=== PATIENT | male | born 1995 | race Caucasian/White ===

== ENCOUNTER 2019-09-03 13:03 | Outpatient (CLI) | payer OTHER ==
[2019-09-04 14:19] LABS: SARS-CoV-2 MS2 Positive; SARS-CoV-2 N Gene Negative; SARS-CoV-2 S Gene Negative; SARS-CoV-2 orf1ab Negative
== END 2019-09-03 13:04 | disposition home or self-care (01) ==
LOC: LABBT 13:03
PROVIDERS: ATTEND Orthopaedic Surgery Hand Surgery
DX: Z01.812 Encounter for preprocedural laboratory examination (principal); Z11.59 Encounter for screening for other viral diseases; S61.209A Unspecified open wound of unspecified finger without damage to nail, initial encounter
CPT/HCPCS: 87635; U0003

== ENCOUNTER 2019-09-07 14:28 | Day surgery (SDC) | payer OTHER ==
[2019-09-03 13:01] VITALS: BMI 36.1
[~2019-09-07 14:28] MED LIST: Dexamethasone 20 MG/5 ML VIAL ONE; Ketorolac Tromethamine 30 MG/ML VIAL ONE; Ondansetron PF 4 MG/2 ML Vial ONE; PROPOFOL 200 MG/20 ML VIAL ONE; diphenhydrAMINE 50 MG/ML VIAL ONE
[2019-09-07] MEDS ORDERED: Mineral Oil Sterile 10ML 10 ML UDCUP ONE (17:08)
[2019-09-07] MEDS ORDERED: Thrombin 5000 UNITS/5 ML VIAL ONE (17:08)
[2019-09-07] MEDS ORDERED: Bacitracin Zinc Ointment 30 gm TUBE ONE (17:08)
[2019-09-07] MEDS ORDERED: Bupivacaine 0.25% HCL 30 ML VIAL ONE (17:08)
[2019-09-07] MEDS ORDERED: Fentanyl 100 MCG/2 ML VIAL ONE ×2 (17:12→19:34)
[2019-09-07] MEDS ORDERED: Midazolam HCl 2 mg/2 ml Vial ONE (17:12)
[2019-09-07] MEDS ORDERED: PROPOFOL 20 ML ONE (17:52)
[2019-09-07] MEDS ORDERED: Propofol 1,000 MG/100 ML VIAL IV ONE (18:03)
[2019-09-07] MEDS ORDERED: Ketorolac Tromethamine 30 MG/ML VIAL ONE (19:18)
[2019-09-07] MEDS ORDERED: HYDROcodone/Acetaminophen 5/325 mg Tablet ONE (20:14)
--- NOTE | 2019-09-08 01:07 | OP ---
DATE OF PROCEDURE: 09/07/2019 PREOPERATIVE DIAGNOSES: 1. Right middle finger open wound, full-thickness skin loss. 2. Right ring finger partial thickness skin loss. POSTOPERATIVE DIAGNOSES: 1. Right middle finger open wound, full-thickness skin loss. 2. Right ring finger partial thickness skin loss. 3. No infection. PROCEDURES PERFORMED: 1. Dressing change, right middle finger and right ring finger wound. 2. Debridement, wound, middle finger. 3. Full-thickness skin loss, 2.5 x 1.5 cm, right middle finger. TOURNIQUET TIME: None. ESTIMATED BLOOD LOSS: Less than or equal to 10 mL. GRAFT SOURCE: Yes, antecubital fossa, where graft was harvested. DESCRIPTION OF PROCEDURE: After successful general LMA technique, the limb was prepped and draped. Immediately had 10 mL of 0.5% Marcaine given at the metacarpophalangeal joint block level at the right middle finger base of the proximal phalanx, and then had 10 mL given to the proximal area, where we had suspected to take the full-thickness skin graft. We then debrided the wound using irrigation with 500 mL normal saline, [place] blade, tenotomy scissors, A[place]on pickup, and a curette. We had no exposed bone and there was a 2 mm skin area distal to the nail and the nail bed was intact. We finished our excisional technique debridement down to the level as listed above, placed a moist dressing over here after measuring with Esmarch the size of the ellipse needed. We then outlined this ellipse and added 2 mm either side to allow for enough skin for coverage. We harvested a full-thickness graft, thinned it, and then placed it with the four-corner technique using 4-0 nylon on the hand/middle finger wound. We then did a running 5-0 chromic suture, I had stretched the graft in excellent fashion, put bacitracin on top of the graft at the finger, covered with Adaptic, covered with a bolster, which we tied using the 4-quadrant suture technique. We then closed the donor site with a running 4-0 Monocryl followed by 4-0 nylon in an interrupted mattress pattern for epidermal closure. Bulky dressing applied in both sites and we placed bacitracin and Band-Aid over the ring finger wound. He left the operating room without evidence of anesthetic or operative complication. Job ID: [id number]
== END 2019-09-07 21:01 | disposition home or self-care (01) ==
LOC: SDC 14:28
PROVIDERS: ATTEND Orthopaedic Surgery Hand Surgery
PROC: 0HRFX73 Replacement of Right Hand Skin with Autologous Tissue Substitute, Full Thickness, External Approach (ICD-10-PCS; principal; 2019-09-07)
DX: S61.202A Unspecified open wound of right middle finger without damage to nail, initial encounter (principal)
CPT/HCPCS: J0690; J1100; J1200; J1885; J2250; J2405; J2704; J3010; J3490; S0020

== ENCOUNTER 2022-06-20 07:07 | Day surgery (SDC) | payer BC ==
[2022-06-19 12:10] VITALS: BMI 36.1
[2022-06-20] MEDS ORDERED: Oxymetazoline HCl 0.05% (30 ML BOT) ONE ×2 (08:23→09:33)
[2022-06-20] MEDS ORDERED: Fentanyl 250 MCG/5 ML VIAL ONE (09:29)
[2022-06-20] MEDS ORDERED: Midazolam HCl 2 mg/2 ml Vial ONE (09:29)
[2022-06-20] MEDS ORDERED: Bacitracin Zinc Ointment 30 gm TUBE ONE (09:33)
[2022-06-20] MEDS ORDERED: Lidocaine 1% (PF) 30 ML VIAL ONE (09:33)
[2022-06-20] MEDS ORDERED: Ferric Subsulfate (ASTRINGYN) 8 GM VIAL ONE (09:33)
[2022-06-20] MEDS ORDERED: EPINEPHrine 1 MG/ML AMP ONE (09:33)
[2022-06-20] MEDS ORDERED: Succinylcholine Chloride 100 MG/5 ML SYRINGE FS ONE (09:44)
[2022-06-20] MEDS ORDERED: PROPOFOL 200 MG/20 ML VIAL ONE (09:44)
[2022-06-20] MEDS ORDERED: Dexamethasone 20 MG/5 ML VIAL ONE (09:44)
[2022-06-20] MEDS ORDERED: Ondansetron PF 4 MG/2 ML Vial ONE (09:44)
[2022-06-20] MEDS ORDERED: Lidocaine 1% PF 5 ML VIAL ONE (09:44)
[2022-06-20] MEDS ORDERED: methylPREDNISolone Acetate 40 mg/ml Vial ONE (10:01)
[2022-06-20] MEDS ORDERED: Meperidine HCl/PF 25 MG/ML VIAL ONE (11:02)
[2022-06-20] MEDS ORDERED: Promethazine HCl 25 MG/ML VIAL ONE (11:03)
[2022-06-20] MEDS ORDERED: fentaNYL 50 mcg/mL 1 mL Vial ONE ×2 (11:24→12:10)
[2022-06-20] MEDS ORDERED: Morphine 2 MG/ML VIAL ONE (13:46)
[2022-06-20] MEDS ORDERED: Hydrocodone-Acetamin 15 ML UDCUP ONE (14:23)
== END 2022-06-20 15:10 | disposition home or self-care (01) ==
LOC: SDC 07:07
PROVIDERS: ATTEND Otolaryngology Plastic Surgery within the Head & Neck
PROC: 09TU8ZZ Resection of Right Ethmoid Sinus, Via Natural or Artificial Opening Endoscopic (ICD-10-PCS; principal; 2022-06-20)
PROC: 099W8ZZ Drainage of Right Sphenoid Sinus, Via Natural or Artificial Opening Endoscopic (ICD-10-PCS; principal; 2022-06-20)
PROC: 099S8ZZ Drainage of Right Frontal Sinus, Via Natural or Artificial Opening Endoscopic (ICD-10-PCS; principal; 2022-06-20)
PROC: 099X8ZZ Drainage of Left Sphenoid Sinus, Via Natural or Artificial Opening Endoscopic (ICD-10-PCS; principal; 2022-06-20)
PROC: 09SM0ZZ Reposition Nasal Septum, Open Approach (ICD-10-PCS; principal; 2022-06-20)
PROC: 0CTPXZZ Resection of Tonsils, External Approach (ICD-10-PCS; principal; 2022-06-20)
PROC: 09TV8ZZ Resection of Left Ethmoid Sinus, Via Natural or Artificial Opening Endoscopic (ICD-10-PCS; principal; 2022-06-20)
PROC: 09TL0ZZ Resection of Nasal Turbinate, Open Approach (ICD-10-PCS; principal; 2022-06-20)
PROC: 8E09XBZ Computer Assisted Procedure of Head and Neck Region (ICD-10-PCS; principal; 2022-06-20)
PROC: 099R8ZZ Drainage of Left Maxillary Sinus, Via Natural or Artificial Opening Endoscopic (ICD-10-PCS; principal; 2022-06-20)
PROC: 099Q8ZZ Drainage of Right Maxillary Sinus, Via Natural or Artificial Opening Endoscopic (ICD-10-PCS; principal; 2022-06-20)
PROC: 0CTQXZZ Resection of Adenoids, External Approach (ICD-10-PCS; principal; 2022-06-20)
PROC: 099T8ZZ Drainage of Left Frontal Sinus, Via Natural or Artificial Opening Endoscopic (ICD-10-PCS; principal; 2022-06-20)
PROC: 0CTNXZZ Resection of Uvula, External Approach (ICD-10-PCS; principal; 2022-06-20)
DX: J32.4 Chronic pansinusitis (principal); J34.2 Deviated nasal septum; J34.3 Hypertrophy of nasal turbinates; K13.79 Other lesions of oral mucosa; J35.01 Chronic tonsillitis; G47.33 Obstructive sleep apnea (adult) (pediatric); J30.9 Allergic rhinitis, unspecified
CPT/HCPCS: 88302; 88304; J0171; J1030; J1100; J2001; J2175; J2250; J2272; J2405; J2550; J2704; J3010